=== PATIENT | male | born 1975 | race Asian ===

== ENCOUNTER → 2024-03-03 09:23 | Outpatient (REF) | payer OTHER, SELFPAY | LOC: PAVMRI 09:23 | PROVIDERS: ATTENDING PHYSICIAN Internal Medicine Gastroenterology; FAMILY PHYSICIAN Family Medicine | DX: R79.89 Other specified abnormal findings of blood chemistry (principal); K76.0 Fatty (change of) liver, not elsewhere classified | CPT/HCPCS: 74183; A9575 ==

== ENCOUNTER → 2024-09-04 08:21 | Outpatient (REF) | payer OTHER, SELFPAY ==
[2024-09-04] VITALS (8 sets, daily range): BP systolic 91–153; BP diastolic 92–115
[2024-09-04 09:08] LABS: Hematocrit 48.2 % (39.0-52.0); Hemoglobin 16.9 g/dL (13.0-18.0); Mean Corp Hgb Conc. 35.1 g/dL (33.0-37.0); Mean Corpuscular Hgb 32.1 pg (27.0-31.0); Mean Corpuscular Volume 91.5 fL (80.0-94.0); Mean Platelet Volume 9.8 fL (7.4-10.4); Platelet Count 139 10^3/uL (130-400); Red Blood Cell Count 5.27 10^6/uL (4.70-6.10); Red Cell Dist. Width 12.7 % (11.5-14.5); White Blood Cell Count 4.7 10^3/uL (4.8-10.8)
[2024-09-04 09:14] LABS: INR 1.05
== END ==
LOC: RADI 08:21
PROVIDERS: ATTENDING PHYSICIAN Internal Medicine Gastroenterology; FAMILY PHYSICIAN Family Medicine
DX: K76.0 Fatty (change of) liver, not elsewhere classified (principal)
CPT/HCPCS: 88307; 36415; 47000; 76942; 85027; 85610; 88313; 99152

== ENCOUNTER 2025-03-27 06:20 | Day surgery (SDC) | payer OTHER, SELFPAY | END 2025-03-27 12:26 | disposition home or self-care (01) | LOC: GI 06:20 | PROVIDERS: ATTENDING PHYSICIAN Internal Medicine Gastroenterology | DX: Z12.11 Encounter for screening for malignant neoplasm of colon (principal); K57.30 Diverticulosis of large intestine without perforation or abscess without bleeding; K64.8 Other hemorrhoids | CPT/HCPCS: G0121 ==